=== PATIENT | male | born 1985 | race Caucasian/White ===

== ENCOUNTER 2017-01-16 17:07 | Emergency (ER) | payer OTHER ==
[~2017-01-16] VITALS: Ht 167.6 cm; Wt 70.8 kg
[2017-01-16 17:52] LABS: BASOPHILS # (AUTO) 0.1 /CMM (0.0-0.2); BASOPHILS % (AUTO) 0.6 % (0.0-2.0); EOSINOPHILS # (AUTO) 0.2 /CMM (0.0-0.7); EOSINOPHILS % (AUTO) 1.8 % (0.0-6.0); HEMATOCRIT 42 % (39-51); HEMOGLOBIN 13.8 g/dL (13.5-17.5); LYMPHOCYTES # (AUTO) 1.6 /CMM (0.8-4.8); LYMPHOCYTES % (AUTO) 15.5 % (20.0-44.0); MEAN CORPUSCULAR HEMOGLOBIN 29 PG (26.0-33.0); MEAN CORPUSCULAR HGB CONC 33 g/dl (31.0-36.0); MEAN CORPUSCULAR VOLUME 87 fL (80-96); MONOCYTES # (AUTO) 0.8 /CMM (0.1-1.30); MONOCYTES % (AUTO) 7.3 % (2.0-12.0); NEUTROPHILS # (AUTO) 7.8 /CMM (1.8-8.9); NEUTROPHILS % (AUTO) 74.8 % (43.0-81.0); PLATELET COUNT (AUTO) 265 /CMM (150-450); RDW COEFFICIENT OF VARIATION 13.6 (11.5-15.0); RED BLOOD CELL COUNT(AUTO) 4.77 MIL/uL (4.5-6.0); WHITE BLOOD COUNT (AUTO) 10.4 K/uL (4.3-11.0)
[2017-01-16] MEDS ORDERED: LORAZEPAM 1 MG TABLET PO ONE (18:00)
[2017-01-16 18:17] LABS: CALCIUM, SERUM 9.6 mg/dL (8.5-10.1); CARBON DIOXIDE 25 mmol/L (21-32); CHLORIDE 99 mmol/L (98-107); GFR 88 mL/min (>60); GLUCOSE 130 mg/dL (74-106); POTASSIUM 3.5 mmol/L (3.5-5.1); SODIUM SERUM 138 mmol/L (136-145); UREA NITROGEN, BLOOD 16 mg/dL (7-18)
[2017-01-16 18:23] LABS: ALANINE AMINOTRANSFERASE 19 U/L (12-78); ALBUMIN 4.7 g/dL (3.4-5.0); ALCOHOL, BLOOD < 3 mg/dL (0-0); ALKALINE PHOSPHATASE 65 U/L (46-116); ASPARTATE AMINOTRANSFERASE 27 U/L (15-37); BILIRUBIN,DIRECT 0.2 mg/dL (0.0-0.2); TOTAL PROTEIN, SERUM 7.8 g/dL (6.4-8.2)
[2017-01-16 18:25] LABS: ACETAMINOPHEN 0 ug/ml (10-30)
[2017-01-16 18:26] LABS: SALICYLATE < 0.2 mg/dL (2.8-20.0)
--- NOTE | 2017-01-16 19:10 | NUR ---
BIB [facility] AND [employer]; C/C SUICIDAL IDEATION. PT PLACED ON 5150 HOLD BY [employer] SMART TEAM. A+OX4. SKIN WARM, DRY. AFEBRILE. RR EVEN, UNLABORED. VSS, NAD NOTED. AMBULATED WITH STEADY GAIT FROM EMS GURNEY TO ER BED 15. AWAITING MD MENJIVAR AND FURTHER ORDERS.
--- NOTE | 2017-01-16 19:22 | NUR ---
SITTER AT BEDSIDE
[2017-01-16] MEDS ORDERED: LORAZEPAM 1 MG TABLET ONE (19:51)
--- NOTE | 2017-01-16 21:00 | NUR ---
PT RESTING COMFORTABLY R LATERAL ON BED. AWAKENS TO NAME. DENIES COMPLAINT. GIVEN WARM BLANKET. PT RETURNED TO SLEEP. SITTER AT BEDSIDE. VSS, NAD NOTED.
--- NOTE | 2017-01-16 23:35 | NUR ---
PT RESTING COMFORTABLY SUPINE ON BED. AWAKENS TO NAME. DENIES COMPLAINT. ASKED PT FOR URINE SAMPLE; STATED HE DID NOT HAVE TO GO AT THIS TIME. GAVE PT CUP OF WATER. PT RETURNED TO SLEEP. SITTER AT BEDSIDE. VSMARCELLUS Finney NOTED.
--- NOTE | 2017-01-17 02:03 | NUR ---
PT RESTING COMFORTABLY LEFT LATERAL ON BED. AWAKENS TO NAME. DENIES COMPLAINT. ASKED PT FOR URINE SAMPLE AGAIN; STATED HE DID NOT HAVE TO GO AT THIS TIME. GAVE PT URINAL. PT RETURNED TO SLEEP. SITTER AT BEDSIDE. MARCELLUS MILES NOTED.
--- NOTE | 2017-01-17 04:43 | NUR ---
PT RESTING COMFORTABLY LEFT LATERAL ON BED. AWAKENS TO NAME. DENIES COMPLAINT. PT PROVIDED URINE SAMPLE; SENT TO LAB. PT RETURNED TO SLEEP. SITTER AT BEDSIDE. VSS, NAD NOTED.
--- NOTE | 2017-01-17 04:46 | NUR ---
LAB CALLED FOR PHILOSOPHY INSTRUCTOR.
[2017-01-17 05:25] LABS: BILIRUBIN,URINE NEGATIVE (NEGATIVE); BLOOD, URINE NEGATIVE Ery/uL (NEGATIVE); COLOR,URINE YELLOW (YELLOW); KETONES,URINE 1+ (NEGATIVE); LEUKOCYTE ESTERASE ,URINE NEGATIVE (NEGATIVE); NITRITE, URINE NEGATIVE (NEGATIVE); PROTEIN,URINE NEGATIVE (NEGATIVE); UGLUCOSE NEGATIVE (NEGATIVE); UROBILINOGEN,URINE 0.2 EU/dL (0.2)
[2017-01-17 05:38] LABS: APPEARANCE,URINE CLEAR (CLEAR)
[2017-01-17 05:41] LABS: ADD URINE CULTURE NO; BACTERIA,URINE None seen /HPF (None Seen); RBC,URINE 0-2 /HPF (0-2); SQUAMOUS EPITHELIAL CELL,UR Rare /HPF (None Seen); WBC,URINE 0-2 /HPF (0-3)
[2017-01-17 05:42] LABS: CANNABINOID, URINE POSITIVE (NEGATIVE); MUCUS,URINE Moderate /LPF (None Seen); PHENCYCLIDINE SCREEN,URINE NEGATIVE (NEGATIVE)
--- NOTE | 2017-01-17 06:55 | NUR ---
PT RESTING COMFORTABLY WITH HOB @30 DEGREES. AWAKENS TO NAME. DENIED COMLAINT THEN RETURNED TO SLEEP. SITTER AT BEDSIDE. VSS, NAD NOTED.
--- NOTE | 2017-01-17 07:30 | NUR ---
APPEARS ASLEEP, SITTER AT BEDSIDE
[2017-01-17] MEDS ORDERED: LORAZEPAM 1 MG TABLET ONE (11:37)
--- NOTE | 2017-01-17 11:43 | NUR ---
CALLED [facility] FOR [facility], ETA 1 HOUR
--- NOTE | 2017-01-17 11:44 | NUR ---
C/O ANXIETY, MEDICATED ORDERED, MOM AND 1:1 SITTER AT BEDSIDE
--- NOTE | 2017-01-17 11:46 | NUR ---
CALLED FOR FOOD TRAY
[2017-01-17] MEDS ORDERED: LORAZEPAM 1 MG TABLET PO ONE (12:00)
--- NOTE | 2017-01-17 12:40 | NUR ---
KEVIN RN,OIL LEASE OPERATOR HERE FOR RE-EVAL
--- NOTE | 2017-01-17 14:39 | NUR ---
Pt denies any SI/HI. Pt cooperative. Jamarcussch eval clear patient to go home. Patient discharged to home in stable condition. Written and verbal after care instructions given. Patient verbalizes understanding of instruction.
[2017-01-17 14:40] VITALS: BP 115/70
--- NOTE | 2017-01-17 14:42 | NUR ---
Patient seen by Flaquita and Dr Shepard. Pt discharge home with pts mom.
== END 2017-01-17 14:43 | disposition home or self-care (01) ==
LOC: ER 17:10
DX: R45.851 Suicidal ideations (principal); F41.9 Anxiety disorder, unspecified; F31.9 Bipolar disorder, unspecified; F11.10 Opioid abuse, uncomplicated
CPT/HCPCS: 36415; 80048; 80076; 80305; 80329; 81001; 85025; 99284; A4606; G0480 ×2; Z7610; 81000-TC; G6039-TC

== ENCOUNTER 2017-07-22 08:39 | Emergency (ER) | payer MEDICAID ==
[~2017-07-22] VITALS: Ht 175.3 cm; Wt 59.0 kg
--- NOTE | 2017-07-22 09:12 | NUR ---
URINE SAMPLE COLLECTED AND SENT TO LAB
--- NOTE | 2017-07-22 09:13 | NUR ---
BLAIR HAMMER LCSW CALLED FOR PSYCH EVAL
--- NOTE | 2017-07-22 09:15 | NUR ---
VECTOR CONTROL ASSISTANT AT BEDSIDE
[2017-07-22 09:40] LABS: BASOPHILS % (AUTO) 0.2 % (0.0-2.0); EOSINOPHILS # (AUTO) 0.1 /CMM (0.0-0.7); EOSINOPHILS % (AUTO) 0.9 % (0.0-6.0); HEMATOCRIT 43 % (39-51); HEMOGLOBIN 14.2 g/dL (13.5-17.5); LYMPHOCYTES # (AUTO) 1.7 /CMM (0.8-4.8); LYMPHOCYTES % (AUTO) 12.1 % (20.0-44.0); MEAN CORPUSCULAR HEMOGLOBIN 28 PG (26.0-33.0); MEAN CORPUSCULAR HGB CONC 33 g/dl (31.0-36.0); MEAN CORPUSCULAR VOLUME 85 fL (80-96); MONOCYTES # (AUTO) 0.2 /CMM (0.1-1.30); MONOCYTES % (AUTO) 1.7 % (2.0-12.0); NEUTROPHILS % (AUTO) 85.1 % (43.0-81.0); PLATELET COUNT (AUTO) 247 /CMM (150-450); RDW COEFFICIENT OF VARIATION 13.9 (11.5-15.0); RED BLOOD CELL COUNT(AUTO) 5.11 MIL/uL (4.5-6.0); WHITE BLOOD COUNT (AUTO) 14.1 K/uL (4.3-11.0)
[2017-07-22 09:46] LABS: APPEARANCE,URINE SL CLOUDY (CLEAR); BILIRUBIN,URINE NEGATIVE (NEGATIVE); BLOOD, URINE NEGATIVE Ery/uL (NEGATIVE); KETONES,URINE NEGATIVE (NEGATIVE); LEUKOCYTE ESTERASE ,URINE NEGATIVE (NEGATIVE); NITRITE, URINE NEGATIVE (NEGATIVE); PH,URINE 8.5 (5.0-8.0); PROTEIN,URINE 1+ mg/dl (NEGATIVE); UGLUCOSE NEGATIVE (NEGATIVE)
[2017-07-22 09:47] LABS: CALCIUM, SERUM 8.9 mg/dL (8.5-10.1); CARBON DIOXIDE 22 mmol/L (21-32); CHLORIDE 103 mmol/L (98-107); CREATININE 0.8 mg/dL (0.6-1.3); GLUCOSE 110 mg/dL (74-106); POTASSIUM 3.8 mmol/L (3.5-5.1); SODIUM SERUM 134 mmol/L (136-145); UREA NITROGEN, BLOOD 14 mg/dL (7-18)
[2017-07-22 09:48] LABS: COLOR,URINE DARK YELLOW (YELLOW)
[2017-07-22 09:53] LABS: ALANINE AMINOTRANSFERASE 26 U/L (12-78); ALBUMIN 3.8 g/dL (3.4-5.0); ALCOHOL, BLOOD < 3 mg/dL (0-0); ALKALINE PHOSPHATASE 67 U/L (46-116); ASPARTATE AMINOTRANSFERASE 22 U/L (15-37); BILIRUBIN,DIRECT 0.1 mg/dL (0.0-0.2); BILIRUBIN,TOTAL 0.4 mg/dL (0.2-1.0); TOTAL PROTEIN, SERUM 7.3 g/dL (6.4-8.2)
[2017-07-22 09:54] LABS: ACETAMINOPHEN 0 ug/ml (10-30); SALICYLATE 2.1 mg/dL (2.8-20.0)
[2017-07-22 10:16] LABS: BACTERIA,URINE None seen /HPF (None Seen); RBC,URINE 0-3 /HPF (0-2); SQUAMOUS EPITHELIAL CELL,UR Few /HPF (None Seen); URINE AMORPHOUS PHOSPHATES Few /HPF (None Seen); WBC,URINE 0-3 /HPF (0-3)
--- NOTE | 2017-07-22 11:00 | NUR ---
ASSUME PT CARE. PT IS SLEEPING. ON MONITOR W/ STABLE VITALS. AWAITING PSYCH EVAL.
--- NOTE | 2017-07-22 11:25 | NUR ---
ART COPPER PLATE LITHOGRAPHER AT BEDSIDE FOR EVAL.
[2017-07-22 12:35] VITALS: BP 128/64
--- NOTE | 2017-07-22 13:19 | NUR ---
REPORT GIVEN TO PAM AT [facility] V[facility]. PT AWAITING TRANPORT.
--- NOTE | 2017-07-22 13:37 | NUR ---
CALLED [facility] FOR [facility] [place] 20MINS TRIP# [id number]
== END 2017-07-22 14:15 ==
LOC: ER 08:40
DX: F31.9 Bipolar disorder, unspecified (principal); F17.200 Nicotine dependence, unspecified, uncomplicated; F41.9 Anxiety disorder, unspecified; F11.10 Opioid abuse, uncomplicated
CPT/HCPCS: 36415; 80048-TC; 80076-TC; 80305; 81000-TC; 85025-TC; A4606; G0480; Q0162; Z7610

== ENCOUNTER 2017-07-29 13:33 | Emergency (ER) | payer MEDICAID ==
[~2017-07-29] VITALS: Ht 175.3 cm; Wt 61.2 kg
--- NOTE | 2017-07-29 14:01 | NUR ---
DR GOOD AT BEDSIDE FOR EVAL.
--- NOTE | 2017-07-29 14:16 | NUR ---
Jazmin prado in [facility] - 07/29/17 at 1710 by CASSY INSTALLATIONS INSPECTOR AT BEDSIDE FOR JACQUELINAL.
--- NOTE | 2017-07-29 14:16 | NUR ---
HOME STAGER AT BEDSIDE FOR BLOOD DRAW.
[2017-07-29 14:27] LABS: APPEARANCE,URINE Hazy (CLEAR); BILIRUBIN,URINE Negative (NEGATIVE); BLOOD, URINE Negative Ery/uL (NEGATIVE); COLOR,URINE Yellow (YELLOW); KETONES,URINE Negative (NEGATIVE); LEUKOCYTE ESTERASE ,URINE Negative (NEGATIVE); NITRITE, URINE Negative (NEGATIVE); PROTEIN,URINE Negative (NEGATIVE); UGLUCOSE Negative (NEGATIVE); UROBILINOGEN,URINE 0.2 EU/dL (0.2)
[2017-07-29 14:37] LABS: BASOPHILS # (AUTO) 0.1 /CMM (0.0-0.2); BASOPHILS % (AUTO) 0.6 % (0.0-2.0); EOSINOPHILS # (AUTO) 0.5 /CMM (0.0-0.7); EOSINOPHILS % (AUTO) 4.5 % (0.0-6.0); HEMATOCRIT 39 % (39-51); LYMPHOCYTES # (AUTO) 2.1 /CMM (0.8-4.8); LYMPHOCYTES % (AUTO) 18.1 % (20.0-44.0); MEAN CORPUSCULAR HEMOGLOBIN 28 PG (26.0-33.0); MEAN CORPUSCULAR HGB CONC 33 g/dl (31.0-36.0); MEAN CORPUSCULAR VOLUME 84 fL (80-96); MONOCYTES # (AUTO) 0.9 /CMM (0.1-1.30); MONOCYTES % (AUTO) 7.5 % (2.0-12.0); NEUTROPHILS % (AUTO) 69.3 % (43.0-81.0); PLATELET COUNT (AUTO) 326 /CMM (150-450); RDW COEFFICIENT OF VARIATION 12.9 (11.5-15.0); RED BLOOD CELL COUNT(AUTO) 4.64 MIL/uL (4.5-6.0); WHITE BLOOD COUNT (AUTO) 11.6 K/uL (4.3-11.0)
[2017-07-29 14:38] LABS: BACTERIA,URINE None seen /HPF (None Seen); RBC,URINE 51-80 /HPF (0-2); SQUAMOUS EPITHELIAL CELL,UR Few /HPF (None Seen); WBC,URINE 0-2 /HPF (0-3)
[2017-07-29 14:47] LABS: CALCIUM, SERUM 8.3 mg/dL (8.5-10.1); CARBON DIOXIDE 30 mmol/L (21-32); CHLORIDE 101 mmol/L (98-107); CREATININE 0.8 mg/dL (0.6-1.3); GLUCOSE 118 mg/dL (74-106); POTASSIUM 3.6 mmol/L (3.5-5.1); SODIUM SERUM 136 mmol/L (136-145); UREA NITROGEN, BLOOD 14 mg/dL (7-18)
[2017-07-29 14:59] LABS: ALANINE AMINOTRANSFERASE 22 U/L (12-78); ALBUMIN 3.9 g/dL (3.4-5.0); ALCOHOL, BLOOD < 3 mg/dL (0-0); ALKALINE PHOSPHATASE 58 U/L (46-116); ASPARTATE AMINOTRANSFERASE 27 U/L (15-37); BILIRUBIN,DIRECT 0.1 mg/dL (0.0-0.2); BILIRUBIN,TOTAL 0.5 mg/dL (0.2-1.0); TOTAL PROTEIN, SERUM 7.1 g/dL (6.4-8.2)
[2017-07-29 15:00] LABS: ACETAMINOPHEN 0 ug/ml (10-30); SALICYLATE 0.3 mg/dL (2.8-20.0)
[2017-07-29] MEDS ORDERED: LORAZEPAM 1 MG TABLET PO ONE (16:00)
[2017-07-29] MEDS ORDERED: LORAZEPAM 1 MG TABLET ONE (16:04)
--- NOTE | 2017-07-29 17:09 | NUR ---
ART RESIDENTIAL LIFE DIRECTOR AT BEDSIDE FOR PSYCH EVAL.
[2017-07-29 17:33] VITALS: BP 123/72
--- NOTE | 2017-07-29 17:33 | NUR ---
Patient discharged to home in stable condition. Written and verbal after care instructions given. Patient verbalizes understanding of instruction.
== END 2017-07-29 17:34 | disposition home or self-care (01) ==
LOC: ER 13:36
DX: F31.9 Bipolar disorder, unspecified (principal); F17.200 Nicotine dependence, unspecified, uncomplicated; F11.10 Opioid abuse, uncomplicated
CPT/HCPCS: 36415; 80048; 80076; 80305; 80329; 81001; 85025; 99284; A4606; G0480 ×2; Z7610; 81000-TC

== ENCOUNTER 2018-01-24 14:47 | Emergency (ER) | payer SELFPAY ==
[~2018-01-24] VITALS: Ht 175.3 cm; Wt 59.0 kg
[2018-01-24 15:03] VITALS: BP 162/90
[2018-01-24] MEDS ORDERED: LIDOCAINE HCL/MPF 1% 30 ML VIAL IJ ONE (15:22)
[2018-01-24] MEDS ORDERED: LORAZEPAM 1 MG TABLET PO ONE (16:00)
[2018-01-24] MEDS ORDERED: LORAZEPAM 1 MG TABLET ONE (16:09)
== END 2018-01-24 16:51 | disposition home or self-care (01) ==
LOC: ER 14:54
DX: L02.413 Cutaneous abscess of right upper limb (principal); F17.200 Nicotine dependence, unspecified, uncomplicated
CPT/HCPCS: A4606; J3490; Z7610